=== PATIENT | male | born 1990 | race African-American/Black ===

== ENCOUNTER 2023-04-07 18:18 | Emergency (ER) | payer MEDICAID ==
[~2023-04-07] VITALS: Ht 182.9 cm; Wt 100.0 kg
[2023-04-07 18:37] VITALS: BP 137/81; PULSE 96; RESP 18; TEMP 97.9; O2SAT 98
== END 2023-04-07 23:30 | disposition left against medical advice (07) ==
LOC: ER 18:18
DX: M79.603 Pain in arm, unspecified (principal); Z53.21 Procedure and treatment not carried out due to patient leaving prior to being seen by health care provider